=== PATIENT | male | born 1990 | race Two or more races ===

== ENCOUNTER 2021-08-13 11:51 | Emergency (ER) | payer SELFPAY ==
[~2021-08-13] VITALS: Ht 167.6 cm; Wt 83.9 kg
[2021-08-13 12:29] VITALS: BP 113/74
== END 2021-08-13 16:51 | disposition home or self-care (01) ==
LOC: ER 11:51
DX: U07.1 COVID-19 (principal); F12.10 Cannabis abuse, uncomplicated
CPT/HCPCS: 36415; 87426